=== PATIENT | male | born 1995 | race Caucasian/White ===

== ENCOUNTER 2024-04-25 18:12 | Emergency (ER) | payer MEDICAID ==
[~2024-04-25] VITALS: Ht 167.6 cm; Wt 82.0 kg
[2024-04-25 18:27] VITALS: BP 120/68; PULSE 75; RESP 18; TEMP 98; O2SAT 100
[2024-04-25] MEDS ORDERED: TOPUD MT (20:32)
[2024-04-25] MEDS ORDERED: IBUP-1525 MT (20:32)
[2024-04-25] MEDS ORDERED: SULF1TAB48 MT (20:32)
== END 2024-04-25 21:23 | disposition home or self-care (01) ==
LOC: ER 18:12
DX: L03.116 Cellulitis of left lower limb (principal)
CPT/HCPCS: 99283